=== PATIENT | female | born 1955 | race Caucasian/White ===

== ENCOUNTER → 2018-02-23 | Outpatient (CLI) | payer OTHER | LOC: FIMAGING 13:19 | PROVIDERS: ATTEND Specialist | DX: N20.0 Calculus of kidney (principal) ==

== ENCOUNTER → 2018-03-30 | Outpatient (CLI) | payer OTHER | LOC: FIMAGING 07:57 | PROVIDERS: ATTEND Specialist | DX: N20.0 Calculus of kidney (principal) ==

== ENCOUNTER → 2018-05-13 | Outpatient (CLI) | payer OTHER ==
[~2018-05-13] MED LIST: IOPAMIDOL (ISOVUE-300) 100 ML BTL ONE
== END ==
LOC: FIMAGING 10:09
PROVIDERS: ATTEND Specialist
DX: N20.0 Calculus of kidney (principal); K80.20 Calculus of gallbladder without cholecystitis without obstruction; K87 Disorders of gallbladder, biliary tract and pancreas in diseases classified elsewhere
CPT/HCPCS: Q9967

== ENCOUNTER 2018-05-20 10:16 | Observation (INO) | payer OTHER ==
[2018-05-20] MEDS ORDERED: fentaNYL 100 MCG/2 ML INJ IVP PRN (10:38)
[2018-05-20] MEDS ORDERED: MIDAZOLAM 2 MG/2 ML VIAL IVP PRN (10:38)
[2018-05-20] MEDS ORDERED: GLUCAGON HCL 1 MG VIAL IVP PRN (10:38)
[2018-05-20] MEDS ORDERED: ALTEPLASE 2 MG VIAL IVP PRN (10:38)
[2018-05-20] MEDS ORDERED: FLUMAZENIL 0.5 MG/5 ML MDV IVP PRN (10:38)
[2018-05-20] MEDS ORDERED: NALOXONE HCL 0.4 MG/ML INJ IVP PRN (10:38)
[2018-05-20] MEDS ORDERED: MEPERIDINE 25 MG/ML SYR IVP PRN (10:38)
[2018-05-20 11:32] LABS: INR 1.01 (0.83-1.16); PROTIME(PATIENT) 12.9 SEC (12.0-15.0)
--- NOTE | 2018-05-20 11:51 | PDRADPRE ---
Radiology History & Physical Indication for procedure: other (renal stone) Home medications: Cetirizine [ZyrTEC 10 mg (*)] 10 mg PO DAILY 05/04/18 [Last Taken 05/19/18] Cholecalciferol Vit D3 [Vitamin D3 (*)] 1,000 units PO DAILY 05/04/18 [Last Taken 05/15/18] Herbals/Supplements -Info Only 1 ea PO DAILY 05/04/18 [Last Taken 05/15/18] Sodium Cl Nasal [[place] [employer] (*)] 1 spray NS DAILY PRN 05/04/18 [Last Taken 08/28] Hydrocodone-Acetamin 10-325 mg PRN 05/05/18 [Last Taken 05/16/18] Cipro 1 tab PO DAILY 05/20/18 [Last Taken 05/19/18] Allergies/Adverse Reactions: Penicillins Allergy (Verified 05/04/18 11:44) Rash sulfabenzamide Allergy (Verified 05/04/18 11:44) Rash STEROIDS Allergy (Uncoded 05/04/18 11:44) HEART PALPITATIONS Mental status: A&Ox3
--- NOTE | 2018-05-20 11:51 | PDPROPOC ---
Sedation Plan of Care ASA Classification: ASA 2 Mallampati Score: Class 2 Mallampati Reference Image:
[2018-05-20] MEDS: NS 1,000 ML IV SCH ×2 (11:53→19:47)
[2018-05-20] MEDS ORDERED: IOPAMIDOL (ISOVUE-300) 100 ML BTL ONE ×2 (12:33→14:39)
[2018-05-20] MEDS ORDERED: LIDOCAINE 1% 300 MG/30 ML SDV ONE (12:33)
[2018-05-20] MEDS ORDERED: MIDAZOLAM 2 MG/2 ML VIAL ONE (14:14)
[2018-05-20] MEDS ORDERED: fentaNYL 100 MCG/2 ML INJ ONE (14:14)
[2018-05-20] MEDS ORDERED: ONDANSETRON 4 MG/2 ML VIAL IVP PRN (15:48)
[2018-05-20] MEDS ORDERED: ACETAMINOPHEN 325 MG TAB PO PRN ×2 (15:48→18:45)
[2018-05-20] MEDS ORDERED: HYDROCODONE/APAP 10/325 TAB ONE (17:30)
[2018-05-20] MEDS ORDERED: HYDROCODONE/APAP 10/325 TAB PO ONE (18:00)
[2018-05-20] MEDS ORDERED: LORazepam 0.5 MG TAB PO PRN (18:45)
[2018-05-20] MEDS ORDERED: LORazepam 2 MG/ML INJ IVP PRN (18:45)
[2018-05-20] MEDS ORDERED: ONDANSETRON DISINTEGRATING 4 MG TAB PO PRN (18:45)
[2018-05-20] MEDS ORDERED: HYDROmorphONE/DILAUDID 1 MG/ML INJ IVP PRN (18:45)
[2018-05-20] MEDS ORDERED: HYDROCODONE/APAP 5/325 TAB PO PRN (18:45)
[2018-05-20] MEDS ORDERED: PROMETHAZINE HCL 25 MG/ML INJ IVP PRN (18:45)
[2018-05-20] MEDS: oxyCODONE IR 5 MG TAB PO PRN ×2 (19:47→22:32)
--- NOTE | 2018-05-20 22:06 | PDGENHP ---
History and Physical - Chief Complaint post op pain - History of Present Illness 63 yo F with PMH of nephrolithiasis with current known staghorn calculus of right kidney who today underwent percutaneous nephrostomy tube placement in anticipation of nephrolithotomy by Dr. Hilton in am. In the post operative state patient was having some flank pain, and was concerned regarding driving home in the snow and the need to return in the am for surgery. Pain improved s/ p vicodin, exacerbated by movement or manipulation of nephrostomy bag. She denies fever or chills, she has not had n/v, chest pain or pain with urination. History Information - Allergies/Home Medication List Allergies/Adverse Reactions: Penicillins Allergy (Verified 05/04/18 11:44) Rash sulfabenzamide Allergy (Verified 05/04/18 11:44) Rash STEROIDS Allergy (Uncoded 05/04/18 11:44) HEART PALPITATIONS Home Medications: Cetirizine [ZyrTEC 10 mg (*)] 10 mg PO DAILY 05/04/18 [Last Taken 05/19/18] I have personally reviewed and updated: family history, medical history, social history, surgical history - Past Medical History Additional medical history: nephrolithiasis. cholelithiasis - Surgical History Reports: spinal surgery Additional surgical history: lithotripsy and ureteroscopy. breast reduction - Family History Positive for: non-pertinent - Social History Smoking Status: Never smoked Alcohol Use: None Drug Use: None Additional social history: Review of Systems Review of Systems: ROS: 10pt was reviewed & negative except for what was stated in HPI & below Physical Exam Physical Exam: Temp Pulse Resp BP Pulse Ox 36.6 C 74 16 128/72 H 96 05/20/18 20:02 05/20/18 20:02 05/20/18 20:02 05/20/18 20:02 05/20/18 20:02 O2 (L/minute) 4 Constitutional: no apparent distress, appears nourished Eyes: PERRL, anicteric sclera Ears, Nose, Mouth, Throat: moist mucous membranes, hearing normal Cardiovascular: regular rate and rhythym, no murmur, rub, or gallop Respiratory: no respiratory distress Gastrointestinal: normoactive bowel sounds Genitourinary: other (perc neph tube with bloody urine output) Skin: warm, normal color Musculoskeletal: no muscle tenderness Neurologic: AAOx3 Psychiatric: interacting appropriately, not anxious Lab Data & Imaging Review 05/20/18 11:00 05/20/18 11:00 Hct 44.9 % (38.0-47.0) 05/20/18 11:00 Plt Count 230 10^3/uL (150-400) 05/20/18 11:00 PT 12.9 SEC (12.0-15.0) 05/20/18 11:00 INR 1.01 (0.83-1.16) 05/20/18 11:00 APTT 26.5 SEC (23.0-38.0) 05/20/18 11:00 Creatinine 0.7 mg/dL (0.6-1.0) 05/20/18 11:00 Estimated GFR > 60 05/20/18 11:00 Visualized and Interpreted imaging results: Yes Interpretation: abd/pelvis CT: right kidney staghorn calculus with 19x 15x 13 mm stone Assessment & Plan Assessment: 63 yo F with staghorn renal calculi requiring surgical intervention s/p perc neph in anticipation of nephrolithotomy in am with post op pain # pain: per IR somewhat out of expected range for this type of procedure, plan to monitor overnight, has been well controlled thus far with oral vicodin, prns available as needed # nephrolithiasis: with hx of prior stones and current large right sided staghorn calculus present, s/p perc neph for nephrolithotomy in am, NPO p MN # cholelithiasis: asymptomatic # observation status Patient new to my care. Old records reviewed and summarized as above. Care plan reviewed with IR doctor including plans for monitoring overnight.
[2018-05-21] MEDS: oxyCODONE IR 5 MG TAB PO PRN (03:38)
[2018-05-21 04:40] LABS: PLATELET COUNT 204 10^3/uL (150-400)
--- NOTE | 2018-05-21 07:15 | PDANEPAE ---
ANE History of Present Illness Right kidney stone ANE Past Medical History - Cardiovascular History Hx Hypertension: No Hx Arrhythmias: No Hx Chest Pain: No Hx Coronary Artery / Peripheral Vascular Disease: No Hx CHF / Valvular Disease: No Hx Palpitations: No - Pulmonary History Hx COPD: No Hx Asthma/Reactive Airway Disease: No Hx Recent Upper Respiratory Infection: No Hx Oxygen in Use at Home: No Hx Sleep Apnea: No Sleep Apnea Screening Result - Last Documented: Negative - Neurologic History Hx Cerebrovascular Accident: No Hx Seizures: No Hx Dementia: No - Endocrine History Hx Diabetes: No - Renal History Hx Renal Disorders: Yes Renal History Comment: kideny stones - Liver History Hx Hepatic Disorders: No - Neurological & Psychiatric Hx Hx Neurological and Psychiatric Disorders: No - Cancer History Hx Cancer: Yes Cancer History Comment: melanoma - Congenital Disorder History Hx Congenital Disorders: No - GI History Hx Gastrointestinal Disorders: No - Chronic Pain History Chronic Pain: Yes ANE Review of Systems Review of Systems: - Exercise capacity METS (RN): 4 METS ANE Patient History - Allergies Allergies/Adverse Reactions: Penicillins Allergy (Verified 05/04/18 11:44) Rash sulfabenzamide Allergy (Verified 05/04/18 11:44) Rash STEROIDS Allergy (Uncoded 05/04/18 11:44) HEART PALPITATIONS - Home Medications Home medications: home medication list seen and reviewed Home Medications: Cetirizine [ZyrTEC 10 mg (*)] 10 mg PO DAILY 05/04/18 [Last Taken 05/19/18] - NPO status NPO Status: no food or drink >8 hours NPO Since - Liquids (Date): 05/20/18 NPO Since - Liquids (Time): 00:00 NPO Since - Solids (Date): 05/20/18 NPO Since - Solids (Time): 00:00 - Anes Hx Anes Hx: no prior problems - Smoking Hx Smoking Status: Never smoked - Alcohol Use Alcohol Use: None ANE Labs/Vital Signs - Labs Result Diagrams: 05/21/18 04:06 05/21/18 04:06 - Vital Signs Blood Pressure: 129/75 Heart Rate: 80 Respiratory Rate: 16 O2 Sat (%): 97 Height: 172.7 cm Weight: 72.5 kg ANE Physical Exam - Airway Neck exam: FROM Mallampati Score: Class 2 Mouth exam: normal dental/mouth exam - Pulmonary Pulmonary: no respiratory distress - Cardiovascular Cardiovascular: regular rate and rhythym - ASA Status ASA Status: II ANE Anesthesia Plan Anesthesia Plan: general endotracheal anesthesia (In prone position)
[2018-05-21] MEDS ORDERED: MIDAZOLAM 2 MG/2 ML VIAL IVP ONE (07:34)
[2018-05-21] MEDS ORDERED: IOPAMIDOL (ISOVUE-300) 100 ML BTL ONE (07:35)
[2018-05-21] MEDS ORDERED: MINERAL OIL 10 ML VIAL ONE (07:35)
[2018-05-21] MEDS ORDERED: ROCURONIUM 50 MG/5 ML VIAL ONE (07:48)
[2018-05-21] MEDS ORDERED: PROPOFOL 200 MG/20 ML VIAL ONE (07:53)
[2018-05-21] MEDS ORDERED: fentaNYL 100 MCG/2 ML INJ ONE (07:53)
[2018-05-21] MEDS ORDERED: LR 1,000 ML IV ONE (07:55)
[2018-05-21] MEDS ORDERED: ONDANSETRON 4 MG/2 ML VIAL ONE (10:03)
--- NOTE | 2018-05-21 10:06 | POSTOPPROG ---
Post Op Note Date of Operation: 05/21/18 Surgeon: Matias Hilton (# [id number]) Anesthesia: GET(General Endotracheal) Pre-op Diagnosis: Right staghorn renal calculus Post-op Diagnosis: Right staghorn renal calculus Procedure: Right PCNL > 2 cm w/ fluoro guidance > 1 hour Findings: See op note Inf/Abcess present in the surg proc area at time of surgery?: No EBL: 50-100 (100 cc) Complications: None Drains: Nephrostomy (8.5 Fr. nephroureteral catheter) Specimen(s): Renal calculus fragments
[2018-05-21] MEDS ORDERED: fentaNYL 100 MCG/2 ML INJ IVP PRN (10:09)
[2018-05-21] MEDS ORDERED: HYDROmorphONE/DILAUDID 1 MG/ML INJ IVP PRN (10:09)
[2018-05-21] MEDS ORDERED: NALOXONE HCL 0.4 MG/ML INJ IVP PRN ×3 (10:09→18:12)
[2018-05-21] MEDS ORDERED: ONDANSETRON 4 MG/2 ML VIAL IVP PRN (10:09)
[2018-05-21] MEDS ORDERED: SUGAMMADEX SODIUM 200 MG/2 ML VIAL IVP ONE (10:11)
--- NOTE | 2018-05-21 10:33 | POSTANESTH ---
Post Anesthetic Evaluation Cardiovascular Status: Similar to Pre-Op Cond Respiratory Status: Similar to Pre-op Cond. Level of Consciousness/Mental Status: Alert and Oriented Pain Control: Adequate, Prn Tx Ordered Nausea/Vomiting Control: Adequate, Prn Tx Ordered Complications Possibly Related to Anesthesia: None Noted (PVC's noted in PACU ( none in OR). VSS and denies chest pain. Will watch.)
--- NOTE | 2018-05-21 10:53 | GOP ---
[f rep st] OPERATIVE REPORT DATE OF OPERATION: 05/20/2018 SURGEON: Matias Hilton MD ANESTHESIA: General endotracheal. PREOPERATIVE DIAGNOSIS: Right renal staghorn calculus, greater than 2 cm. POSTOPERATIVE DIAGNOSIS: Right renal staghorn calculus, greater than 2 cm. PROCEDURE PERFORMED: Right percutaneous nephrostolithotomy with fluoroscopic guidance greater than 1 hour. FINDINGS: Significant disruption of the right renal collecting system urothelium, likely as a result of technically difficult nephrostomy tube placement in Interventional Radiology the day prior to surgery. SPECIMENS: Right renal calculus fragments. ESTIMATED BLOOD LOSS: Approximately 100 cc. INDICATIONS: This woman has been undergoing treatment for bilateral nephroureterolithiasis. Her left-sided renal stone burden has been successfully addressed. She has a remaining right partial renal staghorn calculus for which she underwent nephrostomy tube placement in Interventional Radiology yesterday in preparation for today's surgery. She presents for definitive operative management of her right renal stone disease at this time. The indications for the procedures as well as potential risks and complications were discussed with the patient preoperatively. She appeared to understand, her questions were answered, and she wished to proceed. Written informed surgical consent was thereafter obtained. DESCRIPTION OF PROCEDURE: The patient was brought to the operating room and administered general endotracheal anesthesia. She was placed in the prone position on the operating room table following placement of a Valles catheter to bag drainage. The right back was sterilely prepped and draped in standard fashion. Dr. Reyes from Interventional Radiology then proceeded to place a working 32-Japanese nephroscopic sheath, along with a balloon occlusion catheter into the proximal ureter. I then used the rigid nephroscope to perform nephroscopy. There was a fair amount of disruption of the collecting system urothelium, likely as a result of the difficulty in obtaining nephrostomy access in Interventional Radiology yesterday. I used a combination of the rigid nephroscope and the flexible nephroscope to evaluate the renal collecting system. I also used intermittent spot C-arm fluoroscopic imaging to help with collecting system localization and navigation. I was able to identify the upper pole calices and they appeared to be normal without any presence of stones. I initially had difficulty identifying the location of the large staghorn calculus in the lower pole. I was ultimately able to visualize it with the flexible nephroscope initially, then after that with the rigid nephroscope. It appeared that the large staghorn calculus had been pushed into the sinus fat and outside the collecting system proper. This likely occurred yesterday during placement of the nephrostomy tube. Nonetheless, I was able to use an ultrasonic Lithotripter to fragment the large staghorn calculus and then I was able to pull out the fragments using grasping forceps. Once all visualized stone had been fragmented and removed, I then thoroughly re-examined the collecting system for any remaining fragments. On C-arm fluoroscopic imaging, there did appear to be some remaining small stone fragments which I was unable to visualize. These were likely in an adjacent lower pole calyx which I was unable to enter nor visualize through the access that had been obtained for this surgery. Therefore, I decided to terminate the procedure at this time. Dr. Reyes from Interventional Radiology then proceeded to place an 8.5-Japanese nephroureteral catheter. I secured the external portion of this catheter to the skin with 2-0 silk sutures. The nursing staff then proceeded to place dressings and Tegaderm. The nephroureteral catheter were connected to bag drainage. The patient was awakened, extubated, transferred to her bed, then taken to the recovery room. She tolerated the procedure well overall. COMPLICATIONS: None. DISPOSITION: She was transferred to the recovery room in stable condition. /[id number]/MODL MTDD
[2018-05-21] MEDS ORDERED: MEPERIDINE 25 MG/0.5 ML AMP IVP PRN (10:58)
[2018-05-21 11:18] LABS: PLATELET COUNT 204 10^3/uL (150-400)
--- NOTE | 2018-05-21 11:48 | ASMTCMCOM ---
CM Note CM Note Notes: CM reviewed the chart. 63- year old female came in with PHM of nephrolithiasis with current known staghorn calculus of right kidney who today underwent percutaneous nephrostomy tube placement in anticipation of nephrolithotomy. CM will continue to follow. Plan:TBD Date Signed: 05/21/2018 11:48 AM Electronically Signed By:Amelia Romo
[2018-05-21] MEDS: HYDROmorphONE/DILAUDID 1 MG/ML INJ IVP PRN ×2 (12:28→18:01)
[2018-05-21] MEDS ORDERED: oxyCODONE IR 5 MG TAB PO PRN ×2 (14:25→19:36)
[2018-05-21] MEDS ORDERED: MAGNESIUM HYDROXIDE 30 ML UDCUP PO PRN (14:35)
[2018-05-21] MEDS ORDERED: POLYETHYLENE GLYCOL 3350 17 GM PKT PO PRN (14:35)
--- NOTE | 2018-05-21 14:35 | HOSPPROG ---
Hospitalist Progress Note Assessment/Plan: 63 yo F with staghorn renal calculi requiring surgical intervention s/p perc neph tube placement and nephrolithotomy today. #Acute pain: Procedural related - Schedule tylenol 1g q8h - Oxycodone 5mg q4h prn (working better than vicodin per pt), IV dilaudid prn for severe - Ice packs - Bowel regimen #R staghorn renal calculi: S/p percutaneous nephrostolithotomy with Dr Hilton - Alexandre and neph tube in place - Stone analysis pending #Cholelithiasis: Asymptomatic VTE ppx: SCDs Code: full Dispo: Switch to inpatient for ongoing pain control Subjective: Significant right flank pain after surgery although this is relieved by ice. No nausea. Objective: Vital Signs Temp Pulse Resp BP Pulse Ox 36.7 C 77 16 111/60 93 05/21/18 13:47 05/21/18 13:47 05/21/18 13:47 05/21/18 13:47 05/21/18 13:47 Laboratory Results 05/21/18 11:00 05/21/18 11:00 05/20/18 05/21/18 05/22/18 05:59 05:59 05:59 Intake Total 3650 1025 Output Total 1400 220 Balance 2250 805 PT 12.9 SEC (12.0-15.0) 05/20/18 11:00 INR 1.01 (0.83-1.16) 05/20/18 11:00 - Physical Exam Constitutional: appears nourished, not in pain, uncomfortable Eyes: PERRL, anicteric sclera, EOMI Ears, Nose, Mouth, Throat: moist mucous membranes, hearing normal, ears appear normal, no oral mucosal ulcers Cardiovascular: regular rate and rhythym, no murmur, rub, or gallop Respiratory: no respiratory distress, no rales or rhonchi, clear to auscultation Gastrointestinal: normoactive bowel sounds, soft, non-tender abdomen, no palpable masses Genitourinary: alexandre in urethra, other (right nephrostomy tube) Skin: no rashes or abrasions, no fluctuance, no induration Musculoskeletal: full muscle strength, no muscle tenderness, normal joint ROM Neurologic: AAOx3 Psychiatric: interacting appropriately ICD10 Worksheet Patient Problems: Problems Problem Status Onset Nephrolithiasis Acute - ICD10 Problem Qualifiers (1) Nephrolithiasis
[2018-05-21] MEDS: ACETAMINOPHEN 500 MG TAB PO SCH ×2 (14:54→22:37)
[2018-05-21] MEDS ORDERED: HYDROmorphONE/DILAUDID 6 MG/30 ML PCA IV PRN (18:12)
[2018-05-21] MEDS: D5W NS 1,000 ML IV SCH (18:41)
[2018-05-21] MEDS: SENNOSIDES/DOCUSATE SODIUM TAB PO SCH (20:07)
[2018-05-22] MEDS: D5W NS 1,000 ML IV SCH ×3 (01:20→16:32)
[2018-05-22] MEDS: ACETAMINOPHEN 500 MG TAB PO SCH ×3 (05:57→23:44)
[2018-05-22] MEDS: ONDANSETRON 4 MG/2 ML VIAL IVP PRN ×3 (08:58→22:58)
[2018-05-22] MEDS: SENNOSIDES/DOCUSATE SODIUM TAB PO SCH ×2 (09:40→23:45)
--- NOTE | 2018-05-22 11:33 | HOSPPROG ---
Hospitalist Progress Note Assessment/Plan: 63 yo F with staghorn renal calculi requiring surgical intervention s/p perc neph tube placement and nephrolithotomy. 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 Further hx obtained from patients present at bedside. 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 this am, she notes her pain continues to be severe at times, has not been able to eat Objective: Vital Signs Temp Pulse Resp BP Pulse Ox 37.1 C 67 18 120/62 90 L 05/22/18 07:48 05/22/18 10:19 05/22/18 10:19 05/22/18 10:19 05/22/18 10:19 Laboratory Results 05/22/18 04:35 05/22/18 04:35 05/21/18 05/22/18 05/23/18 05:59 05:59 05:59 Intake Total 3650 2902 Output Total 1400 2330 125 Balance 2250 572 -125 PT 12.9 SEC (12.0-15.0) 05/20/18 11:00 INR 1.01 (0.83-1.16) 05/20/18 11:00 awake alert anicter op clear rrr no mrg cta b soft cva ttp, bs normal no cce warm dry well perfused oriented anxious ICD10 Worksheet Patient Problems: Problems Problem Status Onset Nephrolithiasis Acute
--- NOTE | 2018-05-22 14:32 | SOAPPROG ---
BRENDA Progress Note Assessment/Plan: Assessment: post op right pcnl Plan: Urologically cleared for d/c when appropriate with hospitalist. Will arrange antegrade nephrostogram for Friday with followup [address] Hilton. 05/22/18 14:31 Subjective: tired Objective: Vital Signs Temp Pulse Resp BP Pulse Ox 37.1 C 67 18 120/62 90 L 05/22/18 07:48 05/22/18 10:19 05/22/18 10:19 05/22/18 10:19 05/22/18 10:19 Laboratory Results 05/22/18 04:35 05/22/18 04:35 05/21/18 05/22/18 05/23/18 05:59 05:59 05:59 Intake Total 3650 2902 Output Total 1400 2330 125 Balance 2250 572 -125 PT 12.9 SEC (12.0-15.0) 05/20/18 11:00 INR 1.01 (0.83-1.16) 05/20/18 11:00 Physical Exam - Physical Exam General Appearance: alert, no apparent distress Respiratory: normal breath sounds Skin: normal color Neuro/Psych: alert ICD10 Worksheet Patient Problems: Problems Problem Status Onset Nephrolithiasis Acute
[2018-05-22] MEDS ORDERED: DILTIAZEM 125 MG in D5W 125 ML IV ONE (21:25)
[2018-05-22 21:28] LABS: PLATELET COUNT 199 10^3/uL (150-400)
[2018-05-22] MEDS ORDERED: ENOXAPARIN 80 MG/0.8 ML SYR SC SCH (21:30)
[2018-05-22] MEDS ORDERED: DILTIAZEM HCL/D5W 125 ML IV SCH (21:30)
[2018-05-22] MEDS ORDERED: DILTIAZEM 25 MG/5 ML VIAL IVP SCH (21:30)
[2018-05-22] MEDS ORDERED: DILTIAZEM 125 MG/25 ML VIAL IV ONE (21:30)
--- NOTE | 2018-05-22 21:31 | HOSPPROG ---
Hospitalist Progress Note Assessment/Plan: XC Note / STAT team call. Responded to STAT team. Pt had complained of nausea, feel poorly and aide checked vital signs. Her HR was rapid and irregular. STAT team called. EKG showed A fib with RVR. This is new dx. She is s/p right nephrostolithotomy for 2 cm staghorn calculus, almost 36 hrs post-op. No h/o cardiac issues or heart or pulmonary problems. EKG showed A fib with RVR. BP 140's/90's. A&O x3 CV irr irr Pulm CTAB Abd soft, ndnt, +BS Ext no edema Plan: 20 mg IV diltiazem bolus now, then start drip. Transfer to PCU. Suspect post-op a fib. Will check TSH and echo. NS bolus now and cont IVF's. Will cover with Lovenox 1 mg/kg SC BID for now. If she converts, may not need to continue AC given post-op event. Cardiology consult in am, will keep NPO at midnight. 30 min crit care Objective: Vital Signs Temp Pulse Resp BP Pulse Ox 36.7 C 160 H 22 H 140/106 H 95 05/22/18 21:06 05/22/18 21:11 05/22/18 21:06 05/22/18 21:06 05/22/18 21:11 Laboratory Results 05/22/18 21:20 05/21/18 05/22/18 05/23/18 05:59 05:59 05:59 Intake Total 3650 2902 400 Output Total 1400 2330 1000 Balance 2250 572 -600 PT 12.9 SEC (12.0-15.0) 05/20/18 11:00 INR 1.01 (0.83-1.16) 05/20/18 11:00 ICD10 Worksheet Patient Problems: Problems Problem Status Onset Nephrolithiasis Acute
[2018-05-22] MEDS ORDERED: NS 1,000 ML IV ONE (21:40)
[2018-05-22] MEDS ORDERED: POTASSIUM CL 20 MEQ/15 ML UDCUP PO ONE (23:53)
[2018-05-23] MEDS: ACETAMINOPHEN 500 MG TAB PO SCH (05:59)
--- NOTE | 2018-05-23 08:05 | SOAPPROG ---
SOAP Progress Note Assessment/Plan: Assessment: Nephrolithiasis Acute POD # 2, neph tube to remain til next week, follow up with Lida as outpt Plan: disposition per IM, follow up with Lida as outpt 05/23/18 08:04 Subjective: ok Objective: Vital Signs Temp Pulse Resp BP Pulse Ox 36.8 C 76 16 118/64 96 05/23/18 07:33 05/23/18 07:33 05/23/18 07:33 05/23/18 07:33 05/23/18 07:33 Laboratory Results 05/22/18 21:20 05/22/18 21:20 05/22/18 05/23/18 05/24/18 05:59 05:59 05:59 Intake Total 2902 3578.3 Output Total 2330 3150 Balance 572 428.3 PT 12.9 SEC (12.0-15.0) 05/20/18 11:00 INR 1.01 (0.83-1.16) 05/20/18 11:00 Physical Exam - Physical Exam General Appearance: alert Respiratory: No respiratory distress Extremities: No calf tenderness Neuro/Psych: alert, oriented x 3 ICD10 Worksheet Patient Problems: Problems Problem Status Onset Nephrolithiasis Acute
[2018-05-23] MEDS: SENNOSIDES/DOCUSATE SODIUM TAB PO SCH (08:33)
[2018-05-23 11:19] VITALS: BP 122/56
--- NOTE | 2018-05-23 11:49 | GHP ---
[f rep st] HISTORY AND PHYSICAL DATE OF ADMISSION: 05/20/2018 REASON FOR CONSULT: Postoperative atrial fibrillation. Hospitalists request cardiology consult due to postoperative atrial fibrillation with recommendation for treatment and plan. Lexis was admitted to the hospital on 05/20/2018, for a planned Nephrology procedure with Dr. Hilton. She had a known staghorn calculus of the right kidney and underwent percutaneous nephrostomy with tube placement in anticipation of nephrolithotomy by Dr. Hilton. The procedures were done and after surgery it was noted that she had gone into atrial fibrillation. She was started on a diltiazem drip and this morning upon my arrival she has converted to regular sinus rhythm on the diltiazem drip. In visiting with her, she is asymptomatic. She has not had atrial fibrillation in the past. She has had no chest pain, shortness of breath, irregular heart rhythm, and is eager for discharge. ALLERGIES: To penicillin, sulfabenzamide, and steroids. HOME MEDICATIONS: 10 mg daily. PAST MEDICAL HISTORY: Nephrolithiasis and cholelithiasis. SURGICAL HISTORY: Spinal surgery. Breast reduction. Lithotripsy and ureteroscopy. FAMILY HISTORY: No pertinent history given. SOCIAL HISTORY: She has no history of cigarette abuse. She is . REVIEW OF SYSTEMS: 10-point review of system is negative except for what is stated in the HPI. PHYSICAL EXAM: VITAL SIGNS: Heart rate 76 and regular, blood pressure 118/64. She is afebrile. CONSTITUTIONAL: She is in no distress and well nourished. Eyes: PERRLA. EAR, NOSE, THROAT, MOUTH: Mucous membranes moist. No hearing difficulty. CARDIOVASCULAR: Heart rate is regular. Rhythm is regular. No murmur is appreciated. No rubs or gallops. RESPIRATORY: No respiratory distress noted. GASTROINTESTINAL: Normal bowel sounds in all 4 quadrants. GENITOURINARY: She has nephrology tube. SKIN: Warm and dry. MUSCULOSKELETAL : No muscle tenderness. NEUROLOGIC: Alert and oriented x3. PSYCHIATRIC: She is not anxious and interacts appropriately. INVESTIGATION: On May 22, white count 9.61, hemoglobin 12.5, hematocrit 36.7 , sodium 146, potassium 3.5, creatinine 0.5. Troponin less than 0.012. TSH 0.852. playground monitor shows regular sinus rhythm with rare 3-5 beat run of supraventricular tachycardia. RECOMMENDATION: Atrial fibrillation, likely in response to recent surgery. She did respond to diltiazem and converted to a regular sinus rhythm. This is a lone episode of atrial fibrillation and does not need ongoing anticoagulation. RECOMMENDATION: To follow up with PCP or Cardiology in 1 week to re-evaluate for reverting back into atrial fibrillation. At this time, recommendation would be no further antiarrhythmic medication. Thank you very much for asking us to be a part of this patient's care. /[id number]/MODL MTDD
--- NOTE | 2018-05-23 12:28 | PDDCSUM ---
Discharge Summary Discharge Summary: Dates of service 05/20-05/23/18 Consultations: urology, cardiology, IR Procedures performed: percutaneous nephrostomy tube, nephrolithotomy Hospital course by problem: 63 yo F with staghorn renal calculi requiring surgical intervention s/p perc neph tube placement and nephrolithotomy. 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, pain still limiting her ability to eat/ambulate -will wean off of IV pain medications and hopefully dc in am - Bowel regimen # a fib: occurring post operatively, brief episode with return to SR following dilt x 1, no need for AC or f/u unless recurs #R staghorn renal calculi: S/p percutaneous nephrostolithotomy with Dr Hilton - Valles removed and neph tube in place and will be removed after dc - Stone analysis pending -f/u with urology scheduled # anxiety: contributing to her ability to manage her pain, she will f/u with her PCP for management of this #Cholelithiasis: Asymptomatic VTE ppx: SCDs Code: full Dispo: dc home F/u with urology as scheduled Items for f/u: removal of perc neph, definitive management of kidney stone > 35 min spent in dc of patient more than half in coordination of care
--- NOTE | 2018-05-23 12:47 | ASMTDCNOTE ---
Case Management Discharge Discharge Order Complete? Answers: Yes Patient to Obtain Answers: Independently Medications Transportation Arranged Answers: Family/Friends Discharge Comments Notes: CM reviewed the chart. Patient will be discharged independently with her . Patient will follow up with outpatient cardiology. CM available to follow. Date Signed: 05/23/2018 12:46 PM Electronically Signed By:Amelia Romo
--- NOTE | 2018-05-23 12:50 | ASMTLACE ---
SENGE Length of stay for Answers: 3 days current admission Comorbidities - select Answers: Moderate or severe liver all that apply or renal disease Opioid dependence / Chronic pain # of Emergency department Answers: 0 visits in the last 6 months Score: 11 Date Signed: 05/23/2018 12:49 PM Electronically Signed By:Amelia Romo
--- NOTE | 2018-05-25 08:28 | CPEKG ---
Test Reason : OPEN Blood Pressure : / mmHG Vent. Rate : 161 BPM Atrial Rate : 330 BPM P-R Int : 080 ms QRS Dur : 075 ms QT Int : 253 ms P-R-T Axes : 083 057 252 degrees QTc Int : 414 ms Atrial fibrillation with rapid V-rate inferolateral st depression: Query rate related ischemia Confirmed by Javier Quiñonez ([id number]) on 05/25/2018 8:27:22 AM Referred By: Matias Hilton Confirmed By:aJvier Quiñonez
== END 2018-05-23 12:57 | disposition home or self-care (01) ==
LOC: FIMAGING 10:16 → F3E 17:52 → F1N 18:32 → F2W 05-22 21:55
PROVIDERS: ADMIT Radiology Diagnostic Radiology; ATTEND Internal Medicine
PROC: 0T763DZ Dilation of Right Ureter with Intraluminal Device, Percutaneous Approach (ICD-10-PCS; 2018-05-20)
PROC: 0T763DZ Dilation of Right Ureter with Intraluminal Device, Percutaneous Approach (ICD-10-PCS; principal; 2018-05-21 07:45)
PROC: 0TC04ZZ Extirpation of Matter from Right Kidney, Percutaneous Endoscopic Approach (ICD-10-PCS; principal; 2018-05-21 07:45)
PROC: 0TP9X0Z Removal of Drainage Device from Ureter, External Approach (ICD-10-PCS; principal; 2018-05-21 07:45)
DX: N20.0 Calculus of kidney (principal); G89.18 Other acute postprocedural pain; I97.89 Other postprocedural complications and disorders of the circulatory system, not elsewhere classified; I48.0 Paroxysmal atrial fibrillation; Z85.820 Personal history of malignant melanoma of skin; F41.9 Anxiety disorder, unspecified; K80.20 Calculus of gallbladder without cholecystitis without obstruction
CPT/HCPCS: 50081; 50387; 50395; 50433; 74485; 75984; 93005; 99152; 99153; C1729; C1769; C2628; G0378; 82365-90; 82435-PO; 82565-PO; 82947-PO; 84132-PO; 84295-PO; 84520-PO; 85014-ER; C1725; J0696; J1170; J1650; J2250; J2310; J2405; J2704; J3010; Q9967

== ENCOUNTER → 2018-05-26 | Day surgery (SDC) | payer OTHER | END | disposition home or self-care (01) | LOC: FIMAGING 07:16 | PROVIDERS: ATTEND Radiology Diagnostic Radiology | PROC: BT141ZZ Fluoroscopy of Kidneys, Ureters and Bladder using Low Osmolar Contrast (ICD-10-PCS; principal; 2018-05-26) | PROC: 0TP5X0Z Removal of Drainage Device from Kidney, External Approach (ICD-10-PCS; principal; 2018-05-26) | DX: Z87.442 Personal history of urinary calculi (principal); Z09 Encounter for follow-up examination after completed treatment for conditions other than malignant neoplasm | CPT/HCPCS: 50389; 74425; C1769; Q9967 ==

== ENCOUNTER → 2018-06-24 | Outpatient (CLI) | payer OTHER | LOC: FIMAGING 08:50 | PROVIDERS: ATTEND Specialist | DX: N20.0 Calculus of kidney (principal); K80.20 Calculus of gallbladder without cholecystitis without obstruction; K59.00 Constipation, unspecified ==